=== PATIENT | female | born 1950 | race Caucasian/White ===

== ENCOUNTER 2024-03-27 21:40 | Emergency (ER) | payer OTHER ==
[2024-03-27] MEDS ORDERED: AMOX/K CLAV 875 MG TAB ONE (22:38)
[2024-03-27] MEDS ORDERED: ONDANSETRON 4 MG (ODT) TAB ONE (22:38)
[2024-03-27] MEDS ORDERED: HYDROCODONE/APAP 10/325 TAB ONE (22:39)
--- NOTE | 2024-03-28 00:05 | EDPHYS ---
Physician Documentation [facility] Name: Julieth Sykes Age: 74 yrs Sex: Female : 1950 Arrival Date: 03/27/2024 Time: 21:40 Bed DX4 Private MD: ED Physician Carlos Morales HPI: 03/27 21:52 This 74 yrs old Female presents to ER via Unassigned with complaints of Nose sp4 Bleed. 03/28 21:15 Very pleasant 74-year-old female complains of right acute nosebleed starting at 7 PM. sp4 Patient reports she is on Plavix and aspirin at home. Patient does not have history of recurrent nosebleeds. Historical: - Allergies: 03/27 22:47 No Known Allergies; ss - PMHx: 22:15 Diabetes mellitus; Hypothyroidism; as6 - PSHx: 22:15 elbow; knee; back; bypass; as6 - Immunization history:: Adult Immunizations up to date. - Infectious Disease History:: Denies. - Social history:: Smoking status: Patient denies any tobacco usage or history of. - Family history:: not pertinent. ROS: 03/28 21:15 Constitutional: Negative for fever, chills, and weight loss, positive for acute right sp4 epistaxis All other systems are negative, Exam: 21:15 Constitutional: This is a well developed, well nourished patient who is awake, alert, sp4 and in no acute distress. Head/Face: Normocephalic, atraumatic. Eyes: Pupils equal round and reactive to light, extra-ocular motions intact. Lids and lashes normal. Conjunctiva and sclera are not injected. Cornea within normal limits. Periorbital areas with no swelling, redness, or edema. ENT: There is persistent right epistaxis appears to be bright red also with posterior drainage in the throat, Ear exam - tympanic membranes are normal and external auditory canals are clear. Oropharynx with no redness, swelling, or masses, exudates, or evidence of obstruction, uvula midline. Mucous membranes moist. Neck: Trachea midline, no thyromegaly or masses palpated, and no cervical lymphadenopathy. Supple, full range of motion without nuchal rigidity, or vertebral point tenderness. Chest/axilla: Normal chest wall appearance and motion. Nontender with no deformity. No lesions are appreciated. Cardiovascular: Regular rate and rhythm with a normal S1 and S2. No gallops, murmurs, or rubs. Normal PMI, no JVD. No pulse deficits. Respiratory: Lungs have equal breath sounds bilaterally, clear to auscultation and percussion. No rales, rhonchi or wheezes noted. No increased work of breathing, no retractions or nasal flaring. Abdomen/GI: Soft, with normal bowel sounds. No distension or tympany. No guarding or rebound. No evidence of tenderness throughout. Back: No spinal tenderness. No costovertebral tenderness. Skin: Warm, dry with normal turgor. Normal color with no rashes, no lesions, and no evidence of cellulitis. MS/ Extremity: Pulses equal, no cyanosis. Neurovascular intact. Full, normal range of motion. Neuro: Awake and alert, GCS 15, oriented to person, place, time, and situation. Cranial nerves II-XII grossly intact. Motor strength 5/5 in all extremities. Sensory grossly intact. Psych: Awake, alert, with orientation to person, place and time. Behavior, mood, and affect are within normal limits Vital Signs: 03/27 22:13 Pulse 71; Resp 18 S; Temp 97.7(TE); Pulse Ox 97% on R/A; Weight 79.38 kg (R); Height 5 as6 ft. 6 in. (R); Pain 0/10; 22:16 BP 148 / 68; as6 22:13 Body Mass Index 28.25 (79.38 kg, 167.64 cm) as6 22:13 Pain Scale: Adult as6 [place] Coma Score: 03/28 21:15 Eye Response: spontaneous(4). Motor Response: obeys commands(6). Verbal Response: sp4 oriented(5). Total: 15. Procedures: 21:15 Epistaxis treatment: A moderate amount of bleeding noted from right nare. Treated using sp4 rhino rocket, Bleeding stopped. Rhino Rocket placed with Resolution in epistaxis. MDM: 03/27 22:03 Patient medically screened. sp4 03/28 21:15 Differential diagnosis: sinusitis, epistaxis r/t trauma, spontaneous epistaxis. Data sp4 reviewed: vital signs, nurses notes. ED course: Patient reported that her pain was under control after p.o. pain meds. Patient states that she is comfortable going home. Patient prescribed hydrocodone 10 - 325 p.o. as needed pain and advised to see ENT physician Dr. Quinn for office visit in 3 days for the removal of right-sided nasal rocket. Otherwise stable for discharge home. Administered Medications: 03/27 22:47 Drug: Ondansetron PO 4 mg PO once Route: PO; 03/28 00:20 Follow up: Response: No adverse reaction 03/27 22:47 Drug: Gordon PO 10 mg-325 mg 1 tabs PO once Route: PO; 03/28 00:20 Follow up: Response: No adverse reaction; Pain is decreased 00:20 Follow up: Response: RASS: Alert and Calm (0) 03/27 22:47 Drug: Amoxicillin-Clavulanate PO 875 mg PO once Route: PO; 03/28 00:20 Follow up: Response: No adverse reaction Disposition: 21:22 Chart complete. sp4 Disposition Summary: 03/28/24 00:04 Discharge Ordered Notes: Please see ENT doctor in 3 days for nasal pack removal Location: Home sp4 Problem: new sp4 Symptoms: have improved sp4 Condition: Stable sp4 Diagnosis - Epistaxis sp4 - Acute posterior epistaxis sp4 Followup: sp4 - With: Naya Quinn MD - When: 2 - 3 days - Reason: Recheck today's complaints Discharge Instructions: - Discharge Summary Sheet sp4 - Nosebleed, Adult, [id number] sp4 Forms: - Patient Portal Instructions sp4 Prescriptions: - docusate sodium 100 mg Oral tablet - take 1 tablet ORAL route daily PRN constipation; 30 tablet; Refills: 0, Product sp4 Selection Permitted - Augmentin 875-125 mg Oral Tablet - take 1 tablet ORAL route every 12 hours for 10 days; 20 tablet; Refills: 0, sp4 Product Selection Permitted Signatures: Ana Lilia Walton RN RN ss Gaudencio Martinez RN RN as6 Carlos Morales MD MD sp4 Corrections: (The following items were deleted from the chart) 03/27 22:47 22:15 Allergies: Vicodin; as6
--- NOTE | 2024-03-28 00:05 | ER ---
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 denies injury, as6 +blood thinner. Coronavirus screen: At this time, the client does not indicate any symptoms associated with coronavirus-19. Ebola Screen: No symptoms or risks identified at this time. Initial Sepsis Screen: Does the patient meet any 2 criteria? No. Patient's initial sepsis screen is negative. Does the patient have a suspected source of infection? No. Patient's initial sepsis screen is negative. Risk Assessment: Do you want to hurt yourself or someone else? Patient reports no desire to harm self or others. Onset of symptoms was March 27, 2024. 22:13 Method Of Arrival: Wheelchair as6 22:13 Acuity: MATTHEW 4 as6 Triage Assessment: 22:16 General: Appears in no apparent distress. comfortable, Behavior is calm, cooperative. as6 Pain: Denies pain. EENT: Nares with bleeding noted. Historical: - Allergies: 22:47 No Known Allergies; ss - PMHx: 22:15 Diabetes mellitus; Hypothyroidism; as6 - PSHx: 22:15 elbow; knee; back; bypass; as6 - Immunization history:: Adult Immunizations up to date. - Infectious Disease History:: Denies. - Social history:: Smoking status: Patient denies any tobacco usage or history of. - Family history:: not pertinent. Screenin:00 [facility] ED Fall Risk Assessment (Adult) History of falling in the last 3 months, ss including since admission No falls in past 3 months (0 pts) Confusion or Disorientation No (0 pts) Intoxicated or Sedated No (0 pts) Impaired Gait No (0 pts) Mobility Assist Device Used No (0 pt) Altered Elimination No (0 pt) Score/Fall Risk Level 0 - 2 = Low Risk Maintained a safe environment. Abuse screen: Denies threats or abuse. Denies injuries from another. Nutritional screening: No deficits noted. Tuberculosis screening: Never had TB. Assessment: 22:00 General: Appears in no apparent distress. comfortable, Behavior is calm, cooperative. ss Neuro: Level of Consciousness is awake, alert, obeys commands, Oriented to person, place, time, situation. Respiratory: Airway is patent Respiratory effort is even, unlabored, Respiratory pattern is regular, symmetrical. EENT: Nasal rocket placed to R nare by Dr. Richards. Pt tolerated well. . Derm: Skin is pink, warm \T\ dry. 23:26 Reassessment: no active bleeding noted at this time. Pt appears comfortable. Dr. Richards ss notified and states we will wait until 0000 observe her and discharge her home. Vital Signs: 22:13 Pulse 71; Resp 18 S; Temp 97.7(TE); Pulse Ox 97% on R/A; Weight 79.38 kg (R); Height 5 as6 ft. 6 in. (R); Pain 0/10; 22:16 BP 148 / 68; as6 22:13 Body Mass Index 28.25 (79.38 kg, 167.64 cm) as6 22:13 Pain Scale: Adult as6 [place] Coma Score: 03/28 21:15 Eye Response: spontaneous(4). Motor Response: obeys commands(6). Verbal Response: sp4 oriented(5). Total: 15. ED Course: 03/27 21:43 Patient arrived in ED. mr 21:51 Carlos Morales MD is Attending Physician. sp4 22:00 Patient has correct armband on for positive identification. ss 22:15 Triage completed. as6 22:16 Arm band placed on. as6 22:33 Ana Lilia Walton, TAMICA is Primary Nurse. 03/28 00:04 Naya Quinn MD is Referral Physician. sp4 00:19 No provider procedures requiring assistance completed. Patient did not have IV access ss during this emergency room visit. Administered Medications: 03/27 22:47 Drug: Ondansetron PO 4 mg PO once Route: PO; ss 03/28 00:20 Follow up: Response: No adverse reaction 03/27 22:47 Drug: Gaston PO 10 mg-325 mg 1 tabs PO once Route: PO; ss 03/28 00:20 Follow up: Response: No adverse reaction; Pain is decreased ss 00:20 Follow up: Response: RASS: Alert and Calm (0) 03/27 22:47 Drug: Amoxicillin-Clavulanate PO 875 mg PO once Route: PO; 03/28 00:20 Follow up: Response: No adverse reaction Outcome: 00:04 Discharge ordered by . sp4 00:19 Discharged to home via wheelchair, with family, 00:19 Condition: good 00:19 Discharge instructions given to patient, family, Instructed on discharge instructions, follow up and referral plans. medication usage, Demonstrated understanding of instructions, follow-up care, medications, Prescriptions given X 3, 00:19 Patient left the ED. Signatures: Kimberly Bear, Reg Reg mr Ana Lilia Walton RN RN Gaudencio Martinez RN RN as6 Carlos Morales MD MD sp4 Corrections: (The following items were deleted from the chart) 03/27 22:47 22:15 Allergies: Vicodin; as6
[2024-03-28 00:44] VITALS: BP 148/68; TEMP 97.7; O2SAT 97
== END 2024-03-28 00:19 | disposition home or self-care (01) ==
LOC: ER 21:40
DX: R04.0 Epistaxis (principal)
CPT/HCPCS: 30901; 99283; Q0162